=== PATIENT | female | born 1970 | race Caucasian/White ===

== ENCOUNTER 2022-10-10 15:08 | Outpatient (OUT) | payer OTHER, SELFPAY | END 2022-10-10 15:09 | disposition home or self-care (01) | LOC: VC 15:09 | PROVIDERS: PCP Radiology Diagnostic Radiology; Visit Provider Radiology Diagnostic Radiology | DX: I83.813 Varicose veins of bilateral lower extremities with pain (principal) ==

== ENCOUNTER 2022-10-18 12:50 | Outpatient (OUT) | payer OTHER, SELFPAY ==
--- NOTE | 2022-10-18 12:52 | VEIN_ITS ---
Patient: RAYA MIXON Exam Date: 10/18/2022 : 1970 Gender:F Ordering : DR NEVA HAMILTON M.D. Admission #: [id number] Family : Order #: [id number] CLICK HERE TO VIEW EXAM RADIOLOGY REPORT PROCEDURE: VC EXT VENOUS REFLUX MELVA LMTD COMPARISON: None. INDICATIONS: Pain due to varicose veins of bilateral legs I83.813 TECHNIQUE: Duplex imaging of the lower extremity to assess the deep and superficial venous system for the presence of deep or superficial venous incompetence and to document the location and severity of disease. The study includes evaluation of the great saphenous vein (GSV), anterior accessory saphenous vein (AASV) and small saphenous vein (SSV). Patient scanned in reverse Trendelenburg and standing. FINDINGS: RIGHT LOWER EXTREMITY: Saphenofemoral Junction Reflux: Yes 8.9mm 4.8 sec GSV: Diam (mm) Reflux/ Time (sec) Proximal Thigh 6.5 Yes 3.9 Mid Thigh 5.6 Yes 3.7 Distal Thigh 7.4 Yes 4.8 Prox Calf 6.4 Yes 4.8 Mid Calf 3.3 Yes 2.3 Saphenopopliteal Junction Reflux: 6.3mm Yes 1.0 SSV: Proximal Calf 4.6 Yes 0.5 Mid Calf 2.1 Yes 0.9 AASV: Proximal Thigh 5.8 Yes 0.8 Mid Thigh 3.9 Yes 0.7 Distal Thigh Thrombi: No acute or chronic thrombus. Compressibility: Normal. Flow: Minimal deep venous reflux. Preforator: Dist medial lower leg 4.0 mm with 4.9s reflux. Tech Note: Incompetent varicose vein proximal medial lower leg off GSV measures 6.1 mm with 4.8s reflux. Mid medial thigh varicose vein measures 4.5 mm with 0.4s reflux. Varicosity proximal posterior calf measures 2.8 mm with 0.7s reflux. Distal medial lower leg varicose vein measures 4.0 mm with 0.8s reflux. LEFT LOWER EXTREMITY: Saphenofemoral Junction Reflux: Yes 9.8 mm 1.9 sec GSV: Diam (mm) Reflux/Time (sec) Proximal Thigh 6.1 Yes 1.2 Mid Thigh 4.3 Yes 0.7 Distal Thigh 4.6 Yes 0.3 Prox Calf 3.6 Yes 4.7 Mid Calf 2.5 Yes 1.2 Saphenopopliteal Junction Relux: 6.6 mm Yes 4.8 SSV: Proximal Calf 6.0 Yes 4.2 Mid Calf 3.5 Yes 0.3 AASV: Proximal Thigh 3.7 Yes 0.6 Mid Thigh 2.5 Yes 0.5 Distal Thigh Thrombi: No acute or chronic thrombus. Compressibility: Normal. Flow: Mild deep venous reflux. Severe venous reflux in popliteal vein. Data Analytics Chief Scientist: Distal medial lower leg 2.6 mm with 0.6s reflux. Lateral mid lower leg measures 2.8mm with 3.4s reflux. Tech Note: Large incompetent varicose vein that arises off of prox SSV and decompresses SSV measures 9.7 mm with 4.7s reflux. Varicose vein that arises from filtration operator mid lateral lower leg measures 5.4 mm with 3.8s reflux. Medial knee varicose vein measures 3.8 mm with 0.3s reflux. Varicose vein mid anterior lower leg measures 4.5 mm with 1.5s reflux. CONCLUSION: 1. Abnormally dilated and incompetent right great saphenous and anterior accessory saphenous veins. 2. Abnormally dilated and incompetent left great saphenous and small saphenous veins. 3. Abnormally dilated and incompetent branch saphenous varicosities bilaterally. Dictated by: Vladimir Jackson M.D. on 10/18/2022 at 13:57 Approved by: Vladimir Jackson M.D. on 10/18/2022 at 14:22
--- NOTE | 2022-10-18 12:52 | VEIN_ITS ---
Patient: RAYA MIXON Exam Date: 10/18/2022 : 1970 Gender:F Ordering : DR NEVA HAMILTON M.D. Admission #: [id number] Family : Order #: [id number] CLICK HERE TO VIEW EXAM RADIOLOGY REPORT PROCEDURE: VC FACILITY EST COMPREHENSIVE VEIN CENTER - OFFICE VISIT INITIAL COMPARISON: None. PROGRESS NOTES: [age] year old female who presents with a 23 year history of lower extremity dilated discolored veins, leg swelling, muscle cramping, edema. The patient's right leg symptoms are worse than the left. There has been a progression of symptoms significantly over past several years. This increases with prolonged leg dependency. The patient describes an improvement with rest, leg elevation, compression stockings. The patient denies any signs and symptoms to suggest arterial ischemia. The patient describes a family history of liver disease on maternal side. The patient has drinking and smoking history of : Occasional alcohol consumption. No tobacco use. Patient has a past medical history significant for : Noncontributory. The patient denies a history of deep venous thrombus or pulmonary embolus. See separate history and physical for medication list. No prior treatment for varicose or spider veins. Past treatments have included use of compression stockings. After review of nurse notes, history and physical exam I discussed at length the pathophysiology of venous hypertension and possible treatments, therapies and strategies available. We discussed at length the importance of elevating the lower extremities above the level of the heart, increased physical activity and compression stocking use. Ultrasound venous reflux study performed today was discussed at length with the patient. The report demonstrates abnormally dilated and incompetent great saphenous veins bilaterally, right anterior accessory saphenous vein, left small saphenous vein, and numerous branch saphenous varicosities bilaterally. PHYSICAL EXAM: The right leg demonstrates multiple varicosities, a few scattered spider veins, no ulceration, mild edema at this time, no skin discoloration. The left leg demonstrates multiple varicosities, a few scattered spider veins, no ulceration, mild edema at this time, no skin discoloration. Both thighs, legs and feet were symmetrically warm to the touch. Good posterior tibial and dorsalis pedis pulses were present bilaterally. VEIN/VC Facility EST Comprehensive IMPRESSION: 1. Bilateral lower extremity venous insufficiency 2. Bilateral lower extremity varicose veins 3. Mild-moderate lower extremity subcutaneous edema 4. No flow significant arterial disease 5. CEAP: C3, AP, , NE PLAN: 1. Continued use of compression stockings 2. Elevated legs and increased physical activity symptomatic relief 3. Endovenous laser ablation of left great saphenous, right great saphenous, left small saphenous, right anterior accessory saphenous veins. 4. Microfoam chemical ablation of incompetent branch saphenous varicosities bilaterally. 5. Sclerotherapy as needed. Nurse notes, history and physical were reviewed and confirmed, see attached forms. The nurse was present throughout the physical exam and consultation Dictated by: Vladimir Jackson M.D. on 10/18/2022 at 14:22 Approved by: Vladimir Jackson M.D. on 10/18/2022 at 14:42
== END 2022-10-18 12:51 | disposition home or self-care (01) ==
LOC: VC 12:51
PROVIDERS: PCP Radiology Diagnostic Radiology; Visit Provider Radiology Diagnostic Radiology
DX: I83.813 Varicose veins of bilateral lower extremities with pain (principal)
CPT/HCPCS: 93970; G0463

== ENCOUNTER 2022-11-15 09:31 | Outpatient (OUT) | payer OTHER, SELFPAY ==
--- NOTE | 2022-11-15 09:33 | VEIN_ITS ---
The [address] [address] Patient Name: RAYA MIXON MRN: [id number] date: 1970 Sex: F Assigned Patient Location: Current Patient Location: Accession/Order Number: [id number] Exam Date: 11/15/2022 09:40 Report Date: 11/15/2022 10:51 At the request of: NEVA HAMILTON Procedure: VC Endovenous Ablation 1VeinRT EXAMINATION: VC Endovenous Ablation 1VeinRT HISTORY: I83.813 Pain due to varicose veins of bilateral legs The risks and benefits of the procedure had been previously discussed, and were rediscussed at length. Informed written consent was obtained. Shiraz Tavera RN and Marisol Blum RDMS, RVT assisted. Time out procedure was performed. The right lower extremity was prepared and draped in the usual sterile fashion to allow knee flexion in the sterile field. Duplex ultrasound probe was draped in a sterile cover, sterile transmission gel was used. Venous mapping was performed with the areas of dilation and large tributaries marked. The total length was 35 cm from the entry proximal calf to 3 cm below the Saphenofemoral junction. The diameter of the great saphenous vein ranged from 7.4 mm. A 30 gauge needle and 1% buffered lidocaine was used to anesthetize the entry site. A 4 mm incision was made with a scalpel and the saphenous vein was entered percutaneously under direct ultrasound guidance with a micropuncture set, a single stick was successful in gaining access. A micro-guide wire was inserted and the needle removed. A micro-set including a dilator was inserted over the microwire and the needle and dilator were removed. A guide wire was inserted through the micro-set and guided through the saphenous vein to the saphenofemoral junction. The dilator was removed and an introducer sheath was inserted over the wire until the end of the sheath entered the saphenofemoral junction. The dilator and wire were removed and the 600 micron fiber was introduced and placed and positioned so that it extended beyond the sheath and was 3 cm distal to the saphenofemoral or saphenopopliteal junction. Final position of the fiber was determined by ultrasound guidance and duplex imaging. Tumescent anesthetic was delivered by ultrasound guidance. 200 cc of fluid was delivered along the entire course of the saphenous vein. The solution consisted of 1000 cc of normal saline with 40 mL of 1% lidocaine and 20 mL of sodium bicarbonate. A final positioning check was made. The energy source was turned on by means of the foot pedal and the fiber and sheath were withdrawn. The total number of Joules delivered was 1867. The laser was active for 233 seconds under continuous pulse, average laser use of 8 J. Laser start time 10:32 AM, 11/15/2022. Laser stop time 10:36 AM, 11/15/2022. A duplex ultrasound revealed compressibility and flow at the saphenofemoral junction immediately after the procedure. Hemostasis at the access site was achieved. The skin incision of the saphenous vein was closed with a 4 x 4. A compression stocking was applied. Postop instructions were given. A follow up appointment was recommended and scheduled. The patient tolerated the procedure well. Electronically authenticated by: CHER TRENT Date: 11/15/2022 10:51
[2022-11-15] MEDS: LIDOCAINE HCL 10 ML, SODIUM BICARBONATE 1 MEQ INJ (09:48)
[2022-11-15] MEDS: 0.9 % SODIUM CHLORIDE 500 ML, LIDOCAINE HCL 20 ML, SODIUM BICARBONATE 10 MEQ INJ (09:48)
== END 2022-11-15 09:32 | disposition home or self-care (01) ==
LOC: VC 09:31
PROVIDERS: PCP Radiology Diagnostic Radiology; Visit Provider Radiology Diagnostic Radiology
DX: I83.813 Varicose veins of bilateral lower extremities with pain (principal)
CPT/HCPCS: 36478

== ENCOUNTER 2022-11-18 09:29 | Outpatient (OUT) | payer OTHER, SELFPAY ==
--- NOTE | 2022-11-18 | VEIN_ITS ---
Patient: RAYA MIXON Exam Date: 11/18/2022 : 1970 Gender:F Ordering : DR DARNELL CAPUTO M.D. Admission #: [id number] Family : Order #: [id number] CLICK HERE TO VIEW EXAM RADIOLOGY REPORT PROCEDURE: VC FACILITY EST LMTD VEIN CENTER - OFFICE VISIT FOLLOW UP COMPARISON: None. PROGRESS NOTES: The patient reports some mild discomfort following intravenous laser ablation of the right great saphenous vein. The patient did not require oral analgesics. The patient did wear her compression stocking as directed. The patient has followed our recommendations to walk 20-30 minutes once or twice per day since the procedure. Physical exam demonstrates 5 areas of bruising ranging from 1-2 cm along the medial right thigh likely related to tumescence injection. No areas of erythema or warmth. No evidence of cellulitis, thrombophlebitis or active ulceration. Thrombosed right great saphenous vein can be partially palpated. Review of the ultrasound performed the same day demonstrates occlusive thrombus extending throughout the treated right great saphenous vein with heat induced thrombus 2.3 cm from the saphenofemoral junction. The patient expressed a desire to proceed with treatment of incompetent left great saphenous vein. VEIN/VC Facility EST LMTD IMPRESSION: 1. Successful ablation of the right great saphenous vein 2. Persistent incompetent left great saphenous vein. PLAN: Intravenous laser ablation left great saphenous vein Nurse notes, history and physical were reviewed and confirmed, see attached forms. The nurse was present throughout the physical exam and consultation Dictated by: Darnell Caputo MD on 11/18/2022 at 10:06 Approved by: Darnell Caputo MD on 11/18/2022 at 10:07
--- NOTE | 2022-11-18 | VEIN_ITS ---
Patient: RAYA MIXON Exam Date: 11/18/2022 : 1970 Gender:F Ordering : DR DARNELL CAPUTO M.D. Admission #: [id number] Family : Order #: [id number] CLICK HERE TO VIEW EXAM RADIOLOGY REPORT PROCEDURE: VC EXT VENOUS RT LMTD COMPARISON: None. INDICATIONS: Phlebitis of superficial veins of rt lower extremity I80.01 TECHNIQUE: Lower extremity ochoa scale and Duplex Doppler evaluation of the deep venous system from the inguinal ligament through the calf veins. FINDINGS: REGION: Right lower extremity. THROMBI: Negative for DVT. Heat induced thrombus in right GSV 2.3 cm from SFJ and extends to proximal calf. COMPRESSIBILITY: Non-compressible segments corresponding to thrombus. FLOW: Absent flow corresponding to thrombus CONCLUSION: Post ablation occlusion of the ablated right great saphenous vein with heat induced thrombus 2.3 cm from the saphenofemoral junction Dictated by: Darnell Caputo MD on 11/18/2022 at 09:58 Approved by: Darnell Caputo MD on 11/18/2022 at 09:59
== END 2022-11-18 09:30 | disposition home or self-care (01) ==
LOC: VC 09:29
PROVIDERS: PCP Radiology Diagnostic Radiology; Visit Provider Radiology Diagnostic Radiology
DX: I80.01 Phlebitis and thrombophlebitis of superficial vessels of right lower extremity (principal)
CPT/HCPCS: 93971; G0463

== ENCOUNTER 2022-11-29 12:36 | Outpatient (OUT) | payer OTHER, SELFPAY ==
--- NOTE | 2022-11-29 12:40 | VEIN_ITS ---
[address] [address] Patient Name: RAYA MIXON MRN: [id number] date: 1970 Sex: F Assigned Patient Location: Current Patient Location: Accession/Order Number: [id number] Exam Date: 11/29/2022 12:40 Report Date: 11/29/2022 14:24 At the request of: NEVA HAMILTON Procedure: VC Endovenous Ablation 1VeinLT EXAMINATION: VC Endovenous Ablation 1VeinLT HISTORY: Pain due to varicose veins of bilateral legs I83.813 The risks and benefits of the procedure had been previously discussed, and were rediscussed at length. Informed written consent was obtained. Saida Logan RN and Katiana Meade RDMS assisted. Time out procedure was performed. The left lower extremity was prepared and draped in the usual sterile fashion to allow knee flexion in the sterile field. Duplex ultrasound probe was draped in a sterile cover, sterile transmission gel was used. Venous mapping was performed with the areas of dilation and large tributaries marked. The total length was 42 cm from the entry proximal calf to 3 cm below the Saphenofemoral junction. The diameter of the left great saphenous vein ranged from 6.1 mm. A 30 gauge needle and 1% buffered lidocaine was used to anesthetize the entry site. A 4 mm incision was made with a scalpel and the saphenous vein was entered percutaneously under direct ultrasound guidance with a micropuncture set, a single stick was successful in gaining access. A micro-guide wire was inserted and the needle removed. A micro-set including a dilator was inserted over the microwire and the needle and dilator were removed. A guide wire was inserted through the micro-set and guided through the saphenous vein to the saphenofemoral junction. The dilator was removed and an introducer sheath was inserted over the wire until the end of the sheath entered the saphenofemoral junction. The dilator and wire were removed and the 600 micron fiber was introduced and placed and positioned so that it extended beyond the sheath and was 3 cm distal to the saphenofemoral or saphenopopliteal junction. Final position of the fiber was determined by ultrasound guidance and duplex imaging. Tumescent anesthetic was delivered by ultrasound guidance. 200 cc of fluid was delivered along the entire course of the saphenous vein. The solution consisted of 1000 cc of normal saline with 40 mL of 1% lidocaine and 20 mL of sodium bicarbonate. A final positioning check was made. The energy source was turned on by means of the foot pedal and the fiber and sheath were withdrawn. The total number of Joules delivered was 2158. The laser was active for 270 seconds under continuous pulse, average laser use of 8 J. Laser start time 1:33 PM, 11/29/2022. Laser stop time 1:37 PM, 11/29/2022. A duplex ultrasound revealed compressibility and flow at the saphenofemoral junction immediately after the procedure. Hemostasis at the access site was achieved. The skin incision of the saphenous vein was closed with a 4 x 4. A compression stocking was applied. Postop instructions were given. A follow up appointment was recommended and scheduled. The patient tolerated the procedure well. Electronically authenticated by: CHER TRENT Date: 11/29/2022 14:24
[2022-11-29] MEDS: LIDOCAINE HCL 10 ML, SODIUM BICARBONATE 1 MEQ INJ (13:26)
[2022-11-29] MEDS: 0.9 % SODIUM CHLORIDE 500 ML, LIDOCAINE HCL 20 ML, SODIUM BICARBONATE 10 MEQ INJ (13:26)
== END 2022-11-29 12:37 | disposition home or self-care (01) ==
LOC: VC 12:36
PROVIDERS: PCP Radiology Diagnostic Radiology; Visit Provider Radiology Diagnostic Radiology
DX: I83.813 Varicose veins of bilateral lower extremities with pain (principal)
CPT/HCPCS: 36478

== ENCOUNTER 2022-12-02 12:28 | Outpatient (OUT) | payer OTHER, SELFPAY ==
--- NOTE | 2022-12-02 12:35 | VEIN_ITS ---
Patient: RAYA MIXON Exam Date: 12/02/2022 : 1970 Gender:F Ordering : DR NEVA HAMILTON M.D. Admission #: [id number] Family : Order #: [id number] CLICK HERE TO VIEW EXAM RADIOLOGY REPORT PROCEDURE: VC EXT VENOUS LT LIMITED COMPARISON: None. INDICATIONS: I80.02 Phlebitis of superficial veins of lt lower extremity TECHNIQUE: Lower extremity ochoa scale and Duplex Doppler evaluation of the deep venous system from the inguinal ligament through the calf veins. FINDINGS: REGION: Left lower extremity. THROMBI: Negative for DVT. Heat induced thrombus in left GSV 1.1 cm from SFJ and extends to proximal calf. COMPRESSIBILITY: Non-compressible segments. FLOW: Areas of no flow. OTHER: CONCLUSION: 1. Successful post ablation occlusion of left great saphenous vein. Dictated by: Vladimir Jackson M.D. on 12/02/2022 at 13:09 Approved by: Vladimir Jackson M.D. on 12/02/2022 at 13:09
--- NOTE | 2022-12-02 12:35 | VEIN_ITS ---
Patient: RAYA MIXON Exam Date: 12/02/2022 : 1970 Gender:F Ordering : DR NEVA HAMILTON M.D. Admission #: [id number] Family : Order #: [id number] CLICK HERE TO VIEW EXAM RADIOLOGY REPORT PROCEDURE: [facility] EST LMTD VEIN CENTER - OFFICE VISIT FOLLOW UP [facility] PROGRESS NOTES: The patient reports improvement in leg symptoms. There has been interval reduction in varicosities. The patient has followed our recommendations to walk 20-30 minutes once or twice per day since the procedure. Physical exam demonstrates decrease in varicosities of the leg. Persistent superficial varicosities are identified along the legs bilaterally. Review of the ultrasound performed the same day demonstrates occlusive thrombus extending throughout the treated vein(s), see separate report, consistent with a successful ablation. No thrombus extending into or beyond the saphenofemoral junction. The patient expressed a desire to proceed with treatment of remaining incompetent varicose veins. The patient was informed that treatment was a process and would require several procedures/sessions. VEIN/[facility] EST LMTD IMPRESSION: 1. Successful ablation of the left great saphenous vein(s). 2. Persistent incompetent varicose veins and bilateral lower extremity symptoms. PLAN: Endovenous laser ablation of right anterior accessory saphenous vein. Nurse notes, history and physical were reviewed and confirmed, see attached forms. The nurse was present throughout the physical exam and consultation Dictated by: Vladimir Jackson M.D. on 12/02/2022 at 13:09 Approved by: Vladimir Jackson M.D. on 12/02/2022 at 13:10
== END 2022-12-02 12:29 | disposition home or self-care (01) ==
LOC: VC 12:28
PROVIDERS: PCP Radiology Diagnostic Radiology; Visit Provider Radiology Diagnostic Radiology
DX: I80.02 Phlebitis and thrombophlebitis of superficial vessels of left lower extremity (principal)
CPT/HCPCS: 93971; G0463

== ENCOUNTER 2022-12-13 09:46 | Outpatient (OUT) | payer OTHER, SELFPAY ==
--- NOTE | 2022-12-13 09:47 | VEIN_ITS ---
[address] [address] Patient Name: RAYA MIXON MRN: [id number] date: 1970 Sex: F Assigned Patient Location: Current Patient Location: Accession/Order Number: [id number] Exam Date: 12/13/2022 09:50 Report Date: 12/13/2022 11:57 At the request of: NEVA HAMILTON Procedure: VC Endovenous Ablation 1VeinRT EXAMINATION: VC Endovenous Ablation 1Vein Right anterior accessory vein HISTORY: Pain due to varicose veins of bilateral legs I83.813 COMPARISON: No relevant comparison available. TECHNIQUE: The risks and benefits of the procedure had been previously discussed, and were rediscussed at length. Informed written consent was obtained. Katiana Peter and Shiraz Tavera assisted. Time out procedure was performed. The right lower extremity was prepared and draped in the usual sterile fashion to allow knee flexion in the sterile field. Duplex ultrasound probe was draped in a sterile cover, sterile transmission gel was used. Venous mapping was performed with the areas of dilation and large tributaries marked. The total length was 15 cm from the entry MID thigh to 3 cm below the saphenofemoral junction. The diameter of the greater saphenous vein ranged from 4-6 mm. A 30 gauge needle and 1% buffered lidocaine was used to anesthetize the entry site. A 4 mm incision was made with a scalpel and the saphenous vein was entered percutaneously under direct ultrasound guidance with a micropuncture set, a single stick was successful in gaining access. A micro-guide wire was inserted and the needle removed. A micro-set including a dilator was inserted over the microwire and the needle and dilator were removed. A 0.018 guide wire was inserted through the micro-set and threaded through the saphenous vein to the saphenofemoral junction. The dilator was removed and an introducer sheath was inserted over the wire until the end of the sheath entered the saphenofemoral junction. The dilator and wire were removed and the 600 micron fiber was introduced and placed and positioned so that it extended beyond the sheath and was 3 cm peripheral to the saphenofemoral femoral junction. Final position of the fiber was determined by ultrasound guidance and duplex imaging. Tumescent anesthetic was delivered by ultrasound guidance. 100 cc of fluid was delivered along the entire course of the saphenous vein. The solution consisted of 1000 cc of normal saline with 40 mL of 1% lidocaine and 20 mL of sodium bicarbonate. A final positioning check was made. The energy source was turned on by means of the foot pedal and the fiber and sheath were withdrawn. The total number of Joules delivered was 711. The laser was active for 89seconds under continuous pulse, average laser use of 8 J. Laser start time 10:48 AM 12/13/2022 . Laser stop time 10:49 AM 12/13/2022 . A duplex ultrasound revealed compressibility and flow at the saphenofemoral junction immediately after the procedure. Hemostasis at the access site was achieved. The skin incision of the saphenous vein was closed with a 4 x 4. A compression stocking was applied. Postop instructions were given. A follow up appointment was recommended and scheduled. The patient tolerated the procedure well and was discharged in good condition . VEIN/VC Endovenous Ablation 1VeinRT IMPRESSION: Technically successful endovenous laser ablation right anterior accessory saphenous vein Electronically authenticated by: NEVA HAMILTON Date: 12/13/2022 11:57
[2022-12-13] MEDS: LIDOCAINE HCL 1% 100 MG/10 ML MDV INJ (10:18)
[2022-12-13] MEDS: 0.9 % SODIUM CHLORIDE 500 ML, LIDOCAINE HCL 20 ML, SODIUM BICARBONATE 10 MEQ INJ (10:18)
== END 2022-12-13 09:47 | disposition home or self-care (01) ==
LOC: VC 09:46
PROVIDERS: PCP Radiology Diagnostic Radiology; Visit Provider Radiology Diagnostic Radiology
DX: I83.813 Varicose veins of bilateral lower extremities with pain (principal)
CPT/HCPCS: 36478

== ENCOUNTER 2022-12-16 09:38 | Outpatient (OUT) | payer OTHER, SELFPAY ==
--- NOTE | 2022-12-16 09:40 | VEIN_ITS ---
Patient: RAYA MIXON Exam Date: 12/16/2022 : 1970 Gender:F Ordering : DR DARNELL CAPUTO M.D. Admission #: [id number] Family : Order #: [id number] CLICK HERE TO VIEW EXAM RADIOLOGY REPORT PROCEDURE: VC EXT VENOUS RT LMTD COMPARISON: VC EXT VENOUS RT LMTD, 11/18/2022. INDICATIONS: I80.01 Phlebitis of superficial veins of rt lower extremity TECHNIQUE: Lower extremity ochoa scale and Duplex Doppler evaluation of the deep venous system from the inguinal ligament through the calf veins. FINDINGS: REGION: Right lower extremity. THROMBI: Negative for DVT. Heat induced thrombus in right AASV 2.0 cm from SFJ and extends to mid thigh. COMPRESSIBILITY: Non-compressible segments corresponding to thrombus. FLOW: Absent flow corresponding to thrombus CONCLUSION: Post ablation occlusion the right anterior accessory saphenous vein with heat induced thrombus 2 cm from the saphenofemoral junction Dictated by: Darnell Caputo MD on 12/16/2022 at 10:09 Approved by: Darnell Caputo MD on 12/16/2022 at 10:10
--- NOTE | 2022-12-16 09:40 | VEIN_ITS ---
Patient: RAYA MIXON Exam Date: 12/16/2022 : 1970 Gender:F Ordering : DR DARNELL CAPUTO M.D. Admission #: [id number] Family : Order #: [id number] CLICK HERE TO VIEW EXAM RADIOLOGY REPORT PROCEDURE: FACILITY EST LMTD VEIN CENTER - OFFICE VISIT FOLLOW UP COMPARISON: [facility] EST LMTD, 12/02/2022. FACILITY EST LMTD, 11/18/2022. PROGRESS NOTES: The patient reports no significant problems following intravenous laser ablation of the right anterior accessory saphenous vein. The patient did not require oral analgesics. The patient has worn her compression stockings. The patient has followed our recommendations to walk 20-30 minutes once or twice per day since the procedure. Physical exam demonstrates 2 areas bruising in the medial right thigh 1 related to the incision a 2nd related to tumescent injection. The incision is closed. No erythema or warmth to suggest cellulitis or thrombophlebitis. The thrombosed anterior accessory saphenous vein can be partially palpated. Review of the ultrasound performed the same day demonstrates occlusive thrombus extending throughout the right anterior accessory saphenous vein with heat induced thrombus 2.0 cm in the saphenofemoral junction. No deep vein thrombus. The patient expressed a desire to proceed with treatment of dilated incompetent left small saphenous vein with intravenous laser ablation. VEIN/[facility] EST LMTD IMPRESSION: 1. Successful ablation of the right anterior accessory saphenous vein 2. Persistent incompetent left small saphenous vein. PLAN: Intravenous laser ablation left small saphenous vein Nurse notes, history and physical were reviewed and confirmed, see attached forms. The nurse was present throughout the physical exam and consultation Dictated by: Darnell Caputo MD on 12/16/2022 at 10:34 Approved by: Darnell Caputo MD on 12/16/2022 at 10:36
== END 2022-12-16 09:39 | disposition home or self-care (01) ==
LOC: VC 09:38
PROVIDERS: PCP Radiology Diagnostic Radiology; Visit Provider Radiology Diagnostic Radiology
DX: I80.01 Phlebitis and thrombophlebitis of superficial vessels of right lower extremity (principal)
CPT/HCPCS: 93971; G0463

== ENCOUNTER 2023-01-02 09:36 | Outpatient (OUT) | payer OTHER, SELFPAY ==
--- NOTE | 2023-01-02 09:37 | VEIN_ITS ---
The [address] [address] Patient Name: RAYA MIXON MRN: [id number] date: 1970 Sex: F Assigned Patient Location: Current Patient Location: Accession/Order Number: [id number] Exam Date: 01/02/2023 09:40 Report Date: 01/02/2023 10:28 At the request of: NEVA HAMILTON Procedure: VC Endovenous Ablation 1VeinLT EXAMINATION: VC Endovenous Ablation 1VeinLT HISTORY: I83.813 Painful varicose veins of bilat lower extremities The risks and benefits of the procedure had been previously discussed, and were rediscussed at length. Informed written consent was obtained. Shiraz Tavera RN and Marisol Blum RDMS, RVT assisted. Time out procedure was performed. The left lower extremity was prepared and draped in the usual sterile fashion to allow knee flexion in the sterile field. Duplex ultrasound probe was draped in a sterile cover, sterile transmission gel was used. Venous mapping was performed with the areas of dilation and large tributaries marked. The total length was 19 cm from the entry 8 cm above the ankle to 3 cm below the saphenofemoral popliteal junction. The diameter of the left small saphenous vein ranged from 6.0 mm. A 30 gauge needle and 1% buffered lidocaine was used to anesthetize the entry site. A 4 mm incision was made with a scalpel and the saphenous vein was entered percutaneously under direct ultrasound guidance with a micropuncture set, a single stick was successful in gaining access. A micro-guide wire was inserted and the needle removed. A micro-set including a dilator was inserted over the microwire and the needle and dilator were removed. A guide wire was inserted through the micro-set and guided through the saphenous vein to the saphenofemoral junction. The dilator was removed and an introducer sheath was inserted over the wire until the end of the sheath entered the saphenofemoral junction. The dilator and wire were removed and the 600 micron fiber was introduced and placed and positioned so that it extended beyond the sheath and was 3 cm distal to the saphenofemoral or saphenopopliteal junction. Final position of the fiber was determined by ultrasound guidance and duplex imaging. Tumescent anesthetic was delivered by ultrasound guidance. 125 cc of fluid was delivered along the entire course of the saphenous vein. The solution consisted of 1000 cc of normal saline with 40 mL of 1% lidocaine and 20 mL of sodium bicarbonate. A final positioning check was made. The energy source was turned on by means of the foot pedal and the fiber and sheath were withdrawn. The total number of Joules delivered was 1061. The laser was active for 133 seconds under continuous pulse, average laser use of 8 J. Laser start time 10:16 AM, 01/02/2023. Laser stop time 10:18 AM, 01/02/2023. A duplex ultrasound revealed compressibility and flow at the saphenofemoral junction immediately after the procedure. Hemostasis at the access site was achieved. The skin incision of the saphenous vein was closed with a 4 x 4. A compression stocking was applied. Postop instructions were given. A follow up appointment was recommended and scheduled. The patient tolerated the procedure well. Electronically authenticated by: CHER TRENT Date: 01/02/2023 10:28
[2023-01-02] MEDS: 0.9 % SODIUM CHLORIDE 500 ML, LIDOCAINE HCL 20 ML, SODIUM BICARBONATE 10 MEQ INJ (10:00)
[2023-01-02] MEDS: LIDOCAINE HCL 1% 100 MG/10 ML MDV INJ (10:01)
== END 2023-01-02 09:37 | disposition home or self-care (01) ==
LOC: VC 09:37
PROVIDERS: PCP Radiology Diagnostic Radiology; Visit Provider Radiology Diagnostic Radiology
DX: I83.813 Varicose veins of bilateral lower extremities with pain (principal)
CPT/HCPCS: 36478

== ENCOUNTER 2023-02-17 10:40 | Outpatient (OUT) | payer OTHER, SELFPAY ==
--- NOTE | 2023-02-17 10:42 | VEIN_ITS ---
Patient Name: RAYA MIXON MR#: [id number] : 1970 Exam Date: 02/17/2023 Ordering Doctor: DR DARNELL CAPUTO M.D. RADIOLOGY REPORT PROCEDURE: VC EXT VENOUS LT LIMITED COMPARISON: VC EXT VENOUS LT LIMITED, 12/02/2022. INDICATIONS: Phlebitis of superficial veins of lt lower extremity I80.02 TECHNIQUE: Lower extremity ochoa scale and Duplex Doppler evaluation of the deep venous system from the inguinal ligament through the calf veins. FINDINGS: REGION: Left lower extremity. THROMBI: Negative for DVT. Heat induced thrombus visualized 2.0cm from the SPJ. The heat induced thrombus extends from pop fossa to distal calf. COMPRESSIBILITY: Non-compressible segments corresponding to thrombus FLOW: Areas of absent flow corresponding to thrombus CONCLUSION: Post ablation occlusion of the left small saphenous vein with heat induced thrombus 2 cm from the saphenous popliteal junction Dictated by: Darnell Caputo MD on 02/17/2023 at 11:17 Approved by: Darnell Caputo MD on 02/17/2023 at 11:18
--- NOTE | 2023-02-17 10:43 | VEIN_ITS ---
Patient Name: RAYA MIXON MR#: [id number] : 1970 Exam Date: 02/17/2023 Ordering Doctor: DR DARNELL CAPUTO M.D. RADIOLOGY REPORT PROCEDURE: [facility] EST LMTD VEIN CENTER - OFFICE VISIT FOLLOW UP COMPARISON: [facility] EST LMTD, 12/16/2022. [facility] EST LMTD, 12/02/2022. PROGRESS NOTES: The patient reports no significant problems following intravenous laser ablation of the left small saphenous vein. There was a delay in the patient's follow-up due to her work schedule. The patient did not require oral analgesics. The patient has worn her compression stocking and tried exercise since the procedure. Physical exam demonstrates no areas of erythema warmth or ulceration. No evidence of cellulitis or thrombophlebitis. No bruising. The small saphenous vein cannot be palpated. Scattered varicose veins are observed. Review of the ultrasound performed the same day demonstrates occlusive thrombus extending throughout the treated left small saphenous vein with heat induced thrombus 2 cm from the saphenopopliteal junction. No deep vein thrombus is observed. Residual patent incompetent varicose veins are noted. The patient expressed a desire to proceed with treatment of patent incompetent bilateral varicose veins. VEIN/[facility] EST LMTD IMPRESSION: 1. Successful ablation of the left small saphenous vein 2. Persistent incompetent varicose veins. PLAN: Micro foam chemical ablation right leg incompetent varicose veins Nurse notes, history and physical were reviewed and confirmed, see attached forms. The nurse was present throughout the physical exam and consultation Dictated by: Darnell Caputo MD on 02/17/2023 at 11:43 Approved by: Darnell Caputo MD on 02/17/2023 at 11:45
== END 2023-02-17 10:41 | disposition home or self-care (01) ==
LOC: VC 10:40
PROVIDERS: PCP Radiology Diagnostic Radiology; Visit Provider Radiology Diagnostic Radiology
DX: I80.02 Phlebitis and thrombophlebitis of superficial vessels of left lower extremity (principal)
CPT/HCPCS: 93971; G0463

== ENCOUNTER 2023-02-18 08:56 | Outpatient (OUT) | payer OTHER, SELFPAY ==
--- NOTE | 2023-02-18 08:57 | VEIN_ITS ---
The [address] [address] Patient Name: RAYA MIXON MRN: [id number] date: 1970 Sex: F Assigned Patient Location: Current Patient Location: Accession/Order Number: [id number] Exam Date: 02/18/2023 08:57 Report Date: 02/18/2023 10:15 At the request of: NEVA HAMILTON Procedure: VC INJ Foam Sclerosant WUS OPERATOR PREFINISH PROCEDURE: VC INJ Foam Sclerosant WUS OPERATOR PREFINISH COMPARISON: None. HISTORY: I83.813 Bilateral painful varicose veins Pre-operative Diagnosis: CEAP class C3 venous insufficiency with pain, tenderness, edema and incompetent left leg saphenous and varicose vein(s), chronic venous insufficiency left leg secondary to venous incompetence Post-operative Diagnosis: CEAP class C3 venous insufficiency with pain, tenderness, edema and incompetent left leg saphenous and varicose vein(s), chronic venous insufficiency left leg secondary to venous incompetence Procedure Performed: 1. Ultrasound-guided microfoam chemical ablation with Varithenaregistered 2. Intraoperative ultrasound guidance Anesthesia: None Indications for Procedure: 52-year-old female who presents with a long history of lower extremity pain and swelling with varicose veins. The patient failed conservative medical therapy including medical compression stockings, exercise and analgesics. Prior procedures include intravenous laser ablation. Multiple incompetent varicosities of the left leg. Duplex scan showed reflux and enlarged diameters up to 6 mm. The patient underwent informed consent including management options where the complications of infection, bleeding, pain, and skin injury were discussed. Particular attention was spent discussing thrombus extension and deep vein thrombosis as well as the possibility of pulmonary embolus and treatment with oral or injectable blood thinners. Procedure: The patient walked to the procedure room. All applicable staff donned appropriate apparel. A procedure timeout was performed to confirm correct patient, correct extremity, correct procedure, and correct room set-up including presence of all applicable supplies, devices, and drugs. A duplex ultrasound, performed by myself confirmed the location and incompetence of branch saphenous varicosities and their course was marked on the skin together with the dilated tributaries. The extent of treatment of the vein and the associated varicosities was determined through ultrasound mapping. The skin was prepped and then punctured with a butterfly needle and advanced under ultrasound guidance. The Varithenaregistered canister was activated and the canister was primed and purged as required in the instructions for use. Varithenaregistered was drawn into a sterile syringe. The following injections were made: 4 cc injected into a 5 mm varicose vein left posterior proximal lower leg 7 cc injected into a 6 mm varicose vein posterior medial proximal left lower leg 3 cc injected into a 3 mm varicose vein left anterior mid chapman Varithenaregistered was slowly administered at 0.5-1.0 cc/second with close observation by ultrasound of its course in the vessels. Total volume utilized was: 14cc. Following administration of Varithenaregistered the leg was elevated and the patient was asked to repeatedly dorsiflex the ankle to limit flow of Varithenaregistered into perforating veins. Once appropriate spasm had been confirmed in the treated veins, the vascular catheter was removed from the leg and light pressure was applied over the puncture site for hemostasis. The common femoral and deep superficial veins were then evaluated for flow and compressibility prior to dressing placement. The lower extremity was kept elevated at 45 degrees above the horizontal and cording material was applied over the saphenous segments and tributaries to allow for eccentric compression over the target vessels including the targeted saphenous vein(s). A multilayer dressing was applied consisting of foam pads, coban and thigh-high 20-30 mm Hg compression elastic support hose were placed on the patient. The leg was lowered only after compression had been applied and the patient was immediately ambulatory. The patient ambulated 10 minutes under supervision and was without apparent concerns at time of release. Post-care instructions include advising patient to keep post-treatment bandages in place and dry for 48 hours, avoid extended periods of inactivity, avoid heavy exercise for one week, wear compression stockings on the treated leg continuously for two weeks, to walk daily for 10 minutes over the next month. The patient was instructed to take an anti-inflammatory medicine as needed and to follow up for color duplex scan of the Saphenous veins, the treated branch saphenous varicosities, the adjacent deep veins, and additional treatment within 7 days. PERSONNEL: Shiraz Tavera RN Electronically authenticated by: NEVA HAMILTON Date: 02/18/2023 10:15
== END 2023-02-18 08:57 | disposition home or self-care (01) ==
LOC: VC 08:56
PROVIDERS: PCP Radiology Diagnostic Radiology; Visit Provider Radiology Diagnostic Radiology
DX: I83.813 Varicose veins of bilateral lower extremities with pain (principal)
CPT/HCPCS: 36466

== ENCOUNTER 2023-02-24 10:06 | Outpatient (OUT) | payer OTHER, SELFPAY ==
--- NOTE | 2023-02-24 10:06 | VEIN_ITS ---
Patient Name: RAYA MIXON MR#: [id number] : 1970 Exam Date: 02/24/2023 Ordering Doctor: DR DARNELL CAPUTO M.D. RADIOLOGY REPORT PROCEDURE: [facility] EST LMTD VEIN CENTER - OFFICE VISIT FOLLOW UP COMPARISON: [facility] EST LMTD, 02/17/2023. [facility] EST LMTD, 12/16/2022. PROGRESS NOTES: The patient reports no significant problems following chemical ablation of left leg incompetent varicose veins. The patient did not require oral analgesics. The patient has worn her compression stockings. The patient has followed our recommendations to walk 20-30 minutes once or twice per day since the procedure. Physical exam demonstrates scattered thrombosed varicose veins. No residual varicose veins are observed. No erythema or warmth to suggest cellulitis or thrombophlebitis. No active ulceration. A few scattered spider veins remain Review of the ultrasound performed the same day demonstrates occlusive thrombus extending throughout the treated left leg varicose veins. No deep vein thrombus. A single residual varicose vein measuring 3.1 mm is observed. The patient expressed a desire to finish treatments today. She did not desire treatment for spider veins at this time. I instructed the patient to return in 12-24 months for follow-up, earlier if she has problems. VEIN/[facility] EST LMTD IMPRESSION: 1. Successful ablation of treated incompetent left leg varicose veins 2. Persistent spider veins. PLAN: Treatment plan is complete. Follow-up in 12-24 months, earlier if necessary Nurse notes, history and physical were reviewed and confirmed, see attached forms. The nurse was present throughout the physical exam and consultation Dictated by: Darnell Caputo MD on 02/24/2023 at 10:41 Approved by: Darnell Caputo MD on 02/24/2023 at 10:44
--- NOTE | 2023-02-24 10:07 | VEIN_ITS ---
Patient Name: RAYA MIXON MR#: [id number] : 1970 Exam Date: 02/24/2023 Ordering Doctor: DR DARNELL CAPUTO M.D. RADIOLOGY REPORT PROCEDURE: VC EXT VENOUS LT LIMITED COMPARISON: VC EXT VENOUS LT LIMITED, 02/17/2023. VC EXT VENOUS LT LIMITED, 12/02/2022. INDICATIONS: I80.02 Phlebitis of superficial veins of lt lower extremity TECHNIQUE: Lower extremity ochoa scale and Duplex Doppler evaluation of the deep venous system from the inguinal ligament through the calf veins. FINDINGS: REGION: Left lower extremity. THROMBI: Negative for DVT. Varithena induced thrombus is visualized at mid/ant calf and prox/post calf. COMPRESSIBILITY: Non-compressible segments corresponding to thrombus FLOW: Areas of absent flow corresponding to thrombus OTHER: Largest remaining varicose vein is at prox/med calf and measures 3.1mm with 1.2s reflux. CONCLUSION: Post ablation occlusion of treated left leg incompetent varicose veins. Single residual borderline varicose vein measuring 3.1 mm. Dictated by: Darnell Caputo MD on 02/24/2023 at 10:25 Approved by: Darnell Caputo MD on 02/24/2023 at 10:28
== END 2023-02-24 10:07 | disposition home or self-care (01) ==
LOC: VC 10:06
PROVIDERS: PCP Radiology Diagnostic Radiology; Visit Provider Radiology Diagnostic Radiology
DX: I80.02 Phlebitis and thrombophlebitis of superficial vessels of left lower extremity (principal)
CPT/HCPCS: 93971; G0463